=== PATIENT | female | born 1960 | race Caucasian/White ===

== ENCOUNTER 2018-03-23 05:26 | Day surgery (SDC) | payer OTHER ==
[~2018-03-23 05:26] MED LIST: ALENDRONATE SOD70 MG PO; ASACOL400 MG PO; BIOTIN1000 MCG PO; CARBAMAZEPIN100 M1 PO; CITRACA1 PO; DELZICOL400 MG PO; GENTAMICIN15 ML/BTL OD; LORTAB5 PO; MULTI VIT PO; NAPROSYN500 MG PO; PREDNISONE10 MG PO; PREMPRO 0.625/21 TA1 PO; PRILOSEC40 MG PO; TOBRAMYCIN0.3 % OD; VITAMIN C1000 MG PO; VITAMIN E400 UNIT PO
[2018-03-23 08:28] VITALS: BP 118/78
== END 2018-03-23 08:46 | disposition home or self-care (01) | DRG 386 ==
LOC: ENDO 05:26 → ORM 07:30 → ENDO 08:46 → ORM 13:45
PROVIDERS: ATTEND Internal Medicine Gastroenterology
PROC: 0DBK8ZX Excision of Ascending Colon, Via Natural or Artificial Opening Endoscopic, Diagnostic (ICD-10-PCS; principal; 2018-03-23)
PROC: 0DBL8ZX Excision of Transverse Colon, Via Natural or Artificial Opening Endoscopic, Diagnostic (ICD-10-PCS; 2018-03-23)
PROC: 0DBN8ZX Excision of Sigmoid Colon, Via Natural or Artificial Opening Endoscopic, Diagnostic (ICD-10-PCS; 2018-03-23)
PROC: 0DBP8ZX Excision of Rectum, Via Natural or Artificial Opening Endoscopic, Diagnostic (ICD-10-PCS; 2018-03-23)
DX: K51.90 Ulcerative colitis, unspecified, without complications (principal); Q43.8 Other specified congenital malformations of intestine; K64.4 Residual hemorrhoidal skin tags; K64.8 Other hemorrhoids; Z79.899 Other long term (current) drug therapy

== ENCOUNTER 2020-03-28 07:45 | Emergency (ER) | payer OTHER ==
[~2020-03-28] VITALS: Ht 162.6 cm; Wt 64.0 kg
[2020-03-28 08:29] LABS: HEMATOCRIT 42.1 % (37.0-47.0); HEMOGLOBIN 13.7 g/dl (12.0-16.0); IMMATURE GRANULOCYTES 0.7 % (0.0-5.0); MEAN CELL VOLUME 87.9 fL CALC (80.0-100.0); MEAN CORPUSCULAR HGB 28.6 pG CALC (26.0-32.0); MEAN CORPUSCULAR HGB CONC 32.5 g/dL CAL (32.0-36.0); NEUT# 3.52 thou/uL (2.00-7.15); RED BLOOD COUNT 4.79 mill/uL (4.20-5.60); RED CELL DISTRI WIDTH 13.6 % (11.5-15.5)
[2020-03-28 08:54] LABS: ALBUMIN 4.6 g/dL (3.2-5.0); ALKALINE PHOSPHATASE 99 u/l (38-126); ANION GAP 10 (6-22 (CALC)); BUN 13 mg/dL (7-17); BUN/CREATININE RATIO 19 (12-20 (CALC)); C-REACTIVE PROTEIN < 0.5 mg/dL (0-0.9); CARBON DIOXIDE 28 mmol/l (22-30); CHLORIDE 103 mmol/l (95-108); CREATININE 0.7 mg/dL (0.5-1.0); GFR > 60 ML/MIN (>=60 (CALC)); GFR FOR AFR.AMER. > 60 ML/MIN (>=60 (CALC)); POTASSIUM 3.8 mmol/l (3.5-5.1); SGOT/AST 45 u/l (14-36); SODIUM 137 mmol/l (137-146); TOTAL PROTEIN 7.9 g/dL (6.3-8.2)
[2020-03-28 08:55] LABS: BILIRUBIN, TOTAL 1.2 mg/dL (0.0-1.4)
[2020-03-28 08:58] LABS: ACT PARTIAL THROMBO TIME 21.2 SECONDS (20.0-32.5); PROTHROMBIN TIME 9.6 SECONDS (9.0-12.5)
[2020-03-28] MEDS ORDERED: TORADOL PO ×3 (10:13→10:22)
[2020-03-28] MEDS ORDERED: PENTASA500 MG PO (10:16)
[2020-03-28 10:19] VITALS: BP 143/95
== END 2020-03-28 10:21 | disposition home or self-care (01) | DRG 552 ==
LOC: ED 07:45
DX: M54.2 Cervicalgia (principal)
CPT/HCPCS: Q9967

== ENCOUNTER 2020-05-15 22:12 | Emergency (ER) | payer OTHER ==
[~2020-05-15] VITALS: Ht 162.6 cm; Wt 62.0 kg
[~2020-05-15 22:12] MED LIST changes: +PENTASA500 MG PO; +TORADOL PO
[2020-05-15 22:58] LABS: HEMOGLOBIN 12.4 g/dl (12.0-16.0); IMMATURE GRANULOCYTES 0.3 % (0.0-5.0); MEAN CELL VOLUME 87.1 fL CALC (80.0-100.0); MEAN CORPUSCULAR HGB 29.2 pG CALC (26.0-32.0); MEAN CORPUSCULAR HGB CONC 33.5 g/dL CAL (32.0-36.0); NEUT# 4.68 thou/uL (2.00-7.15); RED BLOOD COUNT 4.25 mill/uL (4.20-5.60); RED CELL DISTRI WIDTH 11.9 % (11.5-15.5)
[2020-05-15 23:18] LABS: ALBUMIN 4.1 g/dL (3.2-5.0); ALKALINE PHOSPHATASE 50 u/l (38-126); ANION GAP 10 (6-22 (CALC)); BILIRUBIN, TOTAL 0.7 mg/dL (0.0-1.4); BUN 12 mg/dL (7-17); BUN/CREATININE RATIO 19 (12-20 (CALC)); CARBON DIOXIDE 26 mmol/l (22-30); CHLORIDE 103 mmol/l (95-108); CREATININE 0.6 mg/dL (0.5-1.0); GFR > 60 ML/MIN (>=60 (CALC)); GFR FOR AFR.AMER. > 60 ML/MIN (>=60 (CALC)); POTASSIUM 3.7 mmol/l (3.5-5.1); SGOT/AST 24 u/l (14-36); SODIUM 135 mmol/l (137-146)
[2020-05-16] MEDS ORDERED: TORADOL PO (00:15)
[2020-05-16] MEDS ORDERED: PERCOCET 5/325M1 TAB PO (00:15)
[2020-05-16 00:19] VITALS: BP 119/82
== END 2020-05-16 00:30 | disposition home or self-care (01) | DRG 103 ==
LOC: ED 22:12
PROVIDERS: Emergency Medicine
DX: R51.9 Headache, unspecified (principal); C77.0 Secondary and unspecified malignant neoplasm of lymph nodes of head, face and neck; C09.9 Malignant neoplasm of tonsil, unspecified
CPT/HCPCS: Q9967

== ENCOUNTER 2020-06-04 07:03 | Day surgery (SDC) | payer OTHER ==
[~2020-06-04] VITALS: Ht 162.6 cm; Wt 54.4 kg
[~2020-06-04 07:03] MED LIST changes: +CHEMOTHERAPY IV; +CIPROFLOXACIN AS; +MORPHINE SULFATE5 MG; +OMNICEF300 M1 PO; +PERCOCET 5/325M1 TAB PO; +[UNRECOGNIZED DRUG - OTHER] AS
[2020-06-04 08:13] LABS: HEMATOCRIT 36.2 % (37.0-47.0); HEMOGLOBIN 12.1 g/dl (12.0-16.0); IMMATURE GRANULOCYTES 0.9 % (0.0-5.0); MEAN CELL VOLUME 86.8 fL CALC (80.0-100.0); MEAN CORPUSCULAR HGB CONC 33.4 g/dL CAL (32.0-36.0); NEUT# 6.34 thou/uL (2.00-7.15); RED BLOOD COUNT 4.17 mill/uL (4.20-5.60); RED CELL DISTRI WIDTH 11.5 % (11.5-15.5)
[2020-06-04 08:32] LABS: ALBUMIN 3.9 g/dL (3.2-5.0); ALKALINE PHOSPHATASE 60 u/l (38-126); ANION GAP 15 (6-22 (CALC)); BILIRUBIN, TOTAL 0.8 mg/dL (0.0-1.4); BUN 17 mg/dL (7-17); BUN/CREATININE RATIO 28 (12-20 (CALC)); CARBON DIOXIDE 22 mmol/l (22-30); CHLORIDE 100 mmol/l (95-108); CREATININE 0.6 mg/dL (0.5-1.0); GFR > 60 ML/MIN (>=60 (CALC)); GFR FOR AFR.AMER. > 60 ML/MIN (>=60 (CALC)); POTASSIUM 3.9 mmol/l (3.5-5.1); SGOT/AST 30 u/l (14-36); SODIUM 133 mmol/l (137-146); TOTAL PROTEIN 7.2 g/dL (6.3-8.2)
[2020-06-04] MEDS ORDERED: TORADOL PO (09:53)
[2020-06-04] MEDS ORDERED: TORADOL PEG (10:58)
[2020-06-04 14:23] VITALS: BP 121/72
== END 2020-06-04 12:21 | disposition home or self-care (01) | DRG 147 ==
LOC: ORM 07:03
PROVIDERS: ATTEND Surgery
PROC: 0DH63UZ Insertion of Feeding Device into Stomach, Percutaneous Approach (ICD-10-PCS; principal; 2020-06-04)
PROC: 02HV33Z Insertion of Infusion Device into Superior Vena Cava, Percutaneous Approach (ICD-10-PCS; 2020-06-04)
PROC: B518ZZA Fluoroscopy of Superior Vena Cava, Guidance (ICD-10-PCS; 2020-06-04)
PROC: 0JH63WZ Insertion of Totally Implantable Vascular Access Device into Chest Subcutaneous Tissue and Fascia, Percutaneous Approach (ICD-10-PCS; 2020-06-04)
DX: C09.9 Malignant neoplasm of tonsil, unspecified (principal); C77.0 Secondary and unspecified malignant neoplasm of lymph nodes of head, face and neck; Z79.899 Other long term (current) drug therapy; Z20.828 Contact with and (suspected) exposure to other viral communicable diseases

== ENCOUNTER 2022-02-10 06:42 | Day surgery (SDC) | payer BC ==
[~2022-02-10] VITALS: Ht 162.6 cm; Wt 54.0 kg
[~2022-02-10 06:42] MED LIST changes: +B-121000 MC1 PO; +CALCIUM; +LEVOTHYROXINE50 MC1 PO; +OMEPRAZOLE DR40 MG PO; +PAXIL30 MG PO; +PILOCARPINE HYDR5 MG PO; +TORADOL PEG; +[UNRECOGNIZED DRUG - OTHER]; +[UNRECOGNIZED DRUG - OTHER] PO
[2022-02-10 09:20] VITALS: BP 141/86
== END 2022-02-10 09:26 | disposition home or self-care (01) | DRG 395 ==
LOC: ENDO 06:42 → ORM 08:00 → ENDO 08:00
PROVIDERS: ATTEND Surgery
PROC: 0DJD8ZZ Inspection of Lower Intestinal Tract, Via Natural or Artificial Opening Endoscopic (ICD-10-PCS; principal; 2022-02-10)
DX: K64.8 Other hemorrhoids (principal); E03.9 Hypothyroidism, unspecified; Z87.19 Personal history of other diseases of the digestive system